=== PATIENT | female | born 1995 | race Caucasian/White ===

== ENCOUNTER 2016-10-26 16:29 | Emergency (ER) | payer MEDICARE | END 2016-10-26 18:16 | disposition home or self-care (01) | LOC: D.ER 16:29 | DX: F41.0 Panic disorder [episodic paroxysmal anxiety] (principal); K21.9 Gastro-esophageal reflux disease without esophagitis ==

== ENCOUNTER 2017-02-03 20:17 | Emergency (ER) | payer MEDICARE | END 2017-02-03 22:15 | disposition home or self-care (01) | LOC: D.ER 20:17 | DX: S93.401A Sprain of unspecified ligament of right ankle, initial encounter (principal); X58.XXXA Exposure to other specified factors, initial encounter; Y93.89 Activity, other specified; Y92.019 Unspecified place in single-family (private) house as the place of occurrence of the external cause; F41.0 Panic disorder [episodic paroxysmal anxiety]; K21.9 Gastro-esophageal reflux disease without esophagitis ==

== ENCOUNTER 2017-09-29 14:17 | Emergency (ER) | payer MEDICARE | END 2017-09-29 16:28 | disposition home or self-care (01) | LOC: D.ER 14:17 | DX: J06.9 Acute upper respiratory infection, unspecified (principal); J20.9 Acute bronchitis, unspecified; S89.91XA Unspecified injury of right lower leg, initial encounter; X58.XXXA Exposure to other specified factors, initial encounter; Y93.89 Activity, other specified; Y92.89 Other specified places as the place of occurrence of the external cause; K21.9 Gastro-esophageal reflux disease without esophagitis ==

== ENCOUNTER 2018-01-27 19:01 | Emergency (ER) | payer MEDICARE ==
[2018-01-27 19:21] LABS: BASOPHILS 0.6 % (0-2); EOSINOPHILS 1.5 % (0-7); HEMOGLOBIN 14.1 g/dL (12-16); IMMATURE GRANULOCYTES 0.1 % (0-5); LYMPHOCYTES 46.2 % (15-50); MCH 30.9 pg (26.0-34.0); MCHC 34.4 g/dL (31.0-37.0); MCV 89.9 fL (80.0-100.0); MEAN PLATELET VOLUME 8.9 fL (7.4-10.4); MONOCYTES 6.9 % (2-11); NEUTROPHILS 44.7 % (40-80); PLATELET COUNT 375 10x3/uL (130-400); RBC 4.56 10x6/uL (4.00-5.40); RDW 13.2 % (11.5-14.5); WBC 8.7 10x3/uL (4.8-10.8)
[2018-01-27 19:33] LABS: APPEARANCE HAZY (CLEAR); BILIRUBIN NEGATIVE (NEGATIVE); COLOR YELLOW (YELLOW); GLUCOSE NEGATIVE (NEGATIVE); KETONE NEGATIVE (NEGATIVE); NITRITE NEGATIVE (NEGATIVE); PROTEIN NEGATIVE (NEGATIVE); SPECIFIC GRAVITY 1.025 (1.005-1.020); UROBILINOGEN NORMAL (NORMAL)
[2018-01-27 19:34] LABS: HCG URINE NEGATIVE (NEGATIVE)
[2018-01-27 19:40] LABS: BACTERIA MODERATE /hpf (NONE SEEN); EPITHELIAL CELLS 0-5 /hpf (0-5); RED CELLS - URINE OCC /hpf (0-5); WHITE CELLS - URINE 0-5 /hpf (0-5)
[2018-01-27 19:44] LABS: ALBUMIN 3.7 g/dL (3.4-5.0); ALKALINE PHOSPHATASE 93 U/L (46-116); ALT (SGPT) 25 U/L (10-68); BILIRUBIN - TOTAL 0.27 mg/dL (0.2-1.3); CALC OSMOLALITY 277 mosm/kg (275-300); CALCIUM 8.7 mg/dL (8.5-10.1); CARBON DIOXIDE 22.4 mmol/L (21.0-32.0); CHLORIDE - SERUM 106 mmol/L (98-107); CREATININE - SERUM 0.9 mg/dL (0.6-1.3); GLUCOSE 120 mg/dL (74-106); POTASSIUM - SERUM 3.7 mmol/L (3.5-5.1); PROTEIN - SERUM 7.9 g/dL (6.4-8.2); SODIUM 139 mmol/L (136-145); UREA NITROGEN 9 mg/dL (7-18); eGFR NON AFRICAN AMERICAN 82 mL/min (90-120)
== END 2018-01-27 20:17 | disposition home or self-care (01) ==
LOC: D.ER 19:01
PROVIDERS: Emergency Medicine
DX: R10.9 Unspecified abdominal pain (principal); H66.92 Otitis media, unspecified, left ear; K21.9 Gastro-esophageal reflux disease without esophagitis

== ENCOUNTER → 2018-01-27 19:09 | Emergency (ER) | payer MEDICARE | LOC: D.ER 19:09 | DX: R10.9 Unspecified abdominal pain (principal); H66.92 Otitis media, unspecified, left ear; K21.9 Gastro-esophageal reflux disease without esophagitis ==

== ENCOUNTER 2018-03-01 22:48 | Emergency (ER) | payer MEDICARE | END 2018-03-01 23:34 | disposition home or self-care (01) | LOC: D.ER 22:48 | DX: L02.414 Cutaneous abscess of left upper limb (principal); K21.9 Gastro-esophageal reflux disease without esophagitis ==

== ENCOUNTER 2018-03-22 12:19 | Emergency (ER) | payer MEDICARE ==
[~2018-03-22] VITALS: Ht 162.6 cm; Wt 90.9 kg
[2018-03-22 12:42] VITALS: Ht 162.6 cm; Wt 90.9 kg
[2018-03-22] MEDS ORDERED: TORADOL10 MG PO (15:03)
[2018-03-22 15:07] VITALS: BP 127/69
== END 2018-03-22 15:09 | disposition home or self-care (01) ==
LOC: D.ER 12:19
DX: T23.032A Burn of unspecified degree of multiple left fingers (nail), not including thumb, initial encounter (principal); X10.1XXA Contact with hot food, initial encounter; Y93.89 Activity, other specified; Y92.019 Unspecified place in single-family (private) house as the place of occurrence of the external cause; K21.9 Gastro-esophageal reflux disease without esophagitis

== ENCOUNTER 2018-03-23 21:13 | Emergency (ER) | payer MEDICARE ==
[~2018-03-23] VITALS: Ht 162.6 cm; Wt 90.9 kg
[~2018-03-23 21:13] MED LIST: TORADOL10 MG PO
[2018-03-23 21:31] VITALS: Ht 162.6 cm; Wt 90.9 kg
[2018-03-23 22:28] VITALS: BP 129/82
== END 2018-03-23 22:06 | disposition home or self-care (01) ==
LOC: D.ER 21:13
DX: T23.002D Burn of unspecified degree of left hand, unspecified site, subsequent encounter (principal); X10.1XXD Contact with hot food, subsequent encounter

== ENCOUNTER 2018-06-19 21:36 | Emergency (ER) | payer MEDICARE ==
[~2018-06-19] VITALS: Ht 162.6 cm; Wt 90.9 kg
[2018-06-19 21:51] VITALS: Ht 162.6 cm; Wt 90.9 kg
[2018-06-19 22:41] LABS: APPEARANCE CLOUDY (CLEAR); BILIRUBIN NEGATIVE (NEGATIVE); COLOR YELLOW (YELLOW); GLUCOSE NEGATIVE (NEGATIVE); KETONE NEGATIVE (NEGATIVE); NITRITE NEGATIVE (NEGATIVE); PROTEIN NEGATIVE (NEGATIVE); UROBILINOGEN NORMAL (NORMAL)
[2018-06-19 22:42] LABS: RED CELLS - URINE 0-5 /hpf (0-5); WHITE CELLS - URINE 0-5 /hpf (0-5)
[2018-06-19 22:43] LABS: EPITHELIAL CELLS 0-5 /hpf (0-5)
[2018-06-19 22:44] LABS: BACTERIA FEW /hpf (NONE SEEN)
[2018-06-19] MEDS ORDERED: OMEPRAZOLE40 MG PO (23:12)
[2018-06-19 23:19] VITALS: BP 118/68
== END 2018-06-19 23:19 | disposition home or self-care (01) ==
LOC: D.ER 21:36
PROVIDERS: Emergency Medicine
DX: K29.70 Gastritis, unspecified, without bleeding (principal); M54.5 Low back pain

== ENCOUNTER 2018-08-02 03:34 | Emergency (ER) | payer MEDICARE ==
[~2018-08-02] VITALS: Ht 162.6 cm; Wt 135.9 kg
[~2018-08-02 03:34] MED LIST changes: +OMEPRAZOLE40 MG PO
[2018-08-02 03:38] VITALS: Ht 162.6 cm; Wt 135.9 kg
[2018-08-02 04:19] LABS: BASOPHILS 0.5 % (0-2); EOSINOPHILS 0.9 % (0-7); HEMATOCRIT 41.2 % (36.0-48.0); HEMOGLOBIN 14.2 g/dL (12-16); IMMATURE GRANULOCYTES 0.1 % (0-5); LYMPHOCYTES 29.8 % (15-50); MCH 30.5 pg (26.0-34.0); MCHC 34.5 g/dL (31.0-37.0); MCV 88.4 fL (80.0-100.0); MEAN PLATELET VOLUME 9.4 fL (7.4-10.4); MONOCYTES 8.9 % (2-11); NEUTROPHILS 59.8 % (40-80); PLATELET COUNT 384 10x3/uL (130-400); RBC 4.66 10x6/uL (4.00-5.40); RDW 12.6 % (11.5-14.5); WBC 9.6 10x3/uL (4.8-10.8)
[2018-08-02 04:40] LABS: ALBUMIN 3.6 g/dL (3.4-5.0); ALKALINE PHOSPHATASE 104 U/L (46-116); ALT (SGPT) 29 U/L (10-68); AMYLASE - SERUM 66 U/L (25-115); BILIRUBIN - TOTAL 0.27 mg/dL (0.2-1.3); CALC OSMOLALITY 291 mosm/kg (275-300); CALCIUM 8.6 mg/dL (8.5-10.1); CARBON DIOXIDE 24.5 mmol/L (21.0-32.0); CHLORIDE - SERUM 110 mmol/L (98-107); CREATININE - SERUM 0.8 mg/dL (0.6-1.3); GLUCOSE 102 mg/dL (74-106); LIPASE 201 U/L (73-393); POTASSIUM - SERUM 3.7 mmol/L (3.5-5.1); PROTEIN - SERUM 7.8 g/dL (6.4-8.2); SODIUM 148 mmol/L (136-145); TROPONIN-I < 0.017 ng/mL (0.000-0.060); UREA NITROGEN 6 mg/dL (7-18); eGFR NON AFRICAN AMERICAN > 90 mL/min (90-120)
[2018-08-02 04:59] LABS: APPEARANCE HAZY (CLEAR); BILIRUBIN NEGATIVE (NEGATIVE); COLOR YELLOW (YELLOW); GLUCOSE NEGATIVE (NEGATIVE); HCG URINE NEGATIVE (NEGATIVE); KETONE NEGATIVE (NEGATIVE); NITRITE NEGATIVE (NEGATIVE); PROTEIN NEGATIVE (NEGATIVE); UROBILINOGEN NORMAL (NORMAL)
[2018-08-02 05:01] LABS: BACTERIA MANY /hpf (NONE SEEN); MUCUS NONE SEEN /lpf (NONE SEEN); RED CELLS - URINE 0-5 /hpf (0-5); WHITE CELLS - URINE 0-5 /hpf (0-5); YEAST NONE SEEN /hpf (NONE SEEN)
[2018-08-02] MEDS ORDERED: CARAFATE1 G PO (06:08)
[2018-08-02] MEDS ORDERED: OMEPRAZOLE40 MG PO (06:08)
[2018-08-02] MEDS ORDERED: FLORASTOR250 MG PO (06:22)
[2018-08-02 06:38] VITALS: BP 138/87
== END 2018-08-02 06:38 | disposition home or self-care (01) ==
LOC: D.ER 03:34
PROVIDERS: Family Medicine
DX: K21.9 Gastro-esophageal reflux disease without esophagitis (principal); K76.0 Fatty (change of) liver, not elsewhere classified; E87.1 Hypo-osmolality and hyponatremia; A59.01 Trichomonal vulvovaginitis

== ENCOUNTER 2019-04-12 23:14 | Emergency (ER) | payer MEDICARE ==
[~2019-04-12] VITALS: Ht 162.6 cm; Wt 136.4 kg
[~2019-04-12 23:14] MED LIST changes: +CARAFATE1 G PO; +FLORASTOR250 MG PO
[2019-04-12 23:18] VITALS: Ht 162.6 cm; Wt 136.4 kg
[2019-04-12 23:49] VITALS: BP 155/100
== END 2019-04-12 23:50 | disposition home or self-care (01) ==
LOC: D.ER 23:14
DX: T23.101A Burn of first degree of right hand, unspecified site, initial encounter (principal); X10.2XXA Contact with fats and cooking oils, initial encounter; Y93.G3 Activity, cooking and baking; Y92.89 Other specified places as the place of occurrence of the external cause

== ENCOUNTER 2019-05-31 22:24 | Emergency (ER) | payer MEDICARE ==
[~2019-05-31] VITALS: Ht 162.6 cm; Wt 90.9 kg
[2019-05-31 22:31] VITALS: Ht 162.6 cm; Wt 90.9 kg
[2019-05-31] MEDS ORDERED: NAPROSYN500 MG PO (23:12)
[2019-05-31 23:35] VITALS: BP 132/80
== END 2019-05-31 23:35 | disposition home or self-care (01) ==
LOC: D.ER 22:24
DX: S93.401A Sprain of unspecified ligament of right ankle, initial encounter (principal); X50.1XXA Overexertion from prolonged static or awkward postures, initial encounter; Y93.89 Activity, other specified; Y92.89 Other specified places as the place of occurrence of the external cause

== ENCOUNTER 2019-06-25 11:24 | Emergency (ER) | payer MEDICARE ==
[~2019-06-25] VITALS: Ht 162.6 cm; Wt 90.9 kg
[~2019-06-25 11:24] MED LIST changes: +NAPROSYN500 MG PO
[2019-06-25 11:51] VITALS: BP 150/95; Ht 162.6 cm; Wt 90.9 kg
[2019-06-25] MEDS ORDERED: VITAMIN D31000 UNI2 PO (11:53)
[2019-06-25] MEDS ORDERED: VITAMIN E100 UNIT PO (11:54)
[2019-06-25] MEDS ORDERED: DOXYCYCLINE HY100 M2 PO (14:55)
== END 2019-06-25 15:34 | disposition home or self-care (01) ==
LOC: D.ER 11:24
DX: L03.312 Cellulitis of back [any part except buttock and flank] (principal)

== ENCOUNTER 2019-08-25 21:34 | Emergency (ER) | payer MEDICARE ==
[~2019-08-25] VITALS: Ht 162.6 cm; Wt 132.3 kg
[~2019-08-25 21:34] MED LIST changes: +DOXYCYCLINE HY100 M2 PO; +VITAMIN D31000 UNI2 PO; +VITAMIN E100 UNIT PO
[2019-08-25 21:39] VITALS: Ht 162.6 cm; Wt 132.3 kg
[2019-08-25] MEDS ORDERED: VITAMIN D31000 UNI2 PO (21:42)
[2019-08-25] MEDS ORDERED: BIRTH CONTROL (21:42)
[2019-08-25] MEDS ORDERED: FLUTICASONE PRO16 GM NASAL (23:38)
[2019-08-25] MEDS ORDERED: AUGMENTIN 875-11 TAB PO (23:38)
[2019-08-25 23:48] VITALS: BP 166/119
== END 2019-08-25 23:48 | disposition home or self-care (01) ==
LOC: D.ER 21:34
DX: J01.90 Acute sinusitis, unspecified (principal); R07.9 Chest pain, unspecified; I10 Essential (primary) hypertension; K21.9 Gastro-esophageal reflux disease without esophagitis; R05 Cough; R09.81 Nasal congestion

== ENCOUNTER 2020-06-25 22:58 | Emergency (ER) | payer MEDICARE ==
[~2020-06-25] VITALS: Ht 162.6 cm; Wt 90.9 kg
[~2020-06-25 22:58] MED LIST changes: +AUGMENTIN 875-11 TAB PO; +BIRTH CONTROL; +FLUTICASONE PRO16 GM NASAL
[2020-06-25 23:04] VITALS: Ht 162.6 cm; Wt 90.9 kg
[2020-06-25] MEDS ORDERED: BENICAR20 MG (23:06)
[2020-06-25] MEDS ORDERED: NORVASC5 MG PO (23:07)
[2020-06-25] MEDS ORDERED: ATIVAN2 MG PO (23:07)
[2020-06-25] MEDS ORDERED: NORCO 7.5-3251 EACH GT (23:57)
[2020-06-26 00:38] VITALS: BP 144/90
== END 2020-06-26 00:38 | disposition home or self-care (01) ==
LOC: D.ER 22:58
DX: S93.401A Sprain of unspecified ligament of right ankle, initial encounter (principal); I10 Essential (primary) hypertension; W19.XXXA Unspecified fall, initial encounter; Y93.9 Activity, unspecified; Y92.9 Unspecified place or not applicable

== ENCOUNTER 2020-06-30 18:42 | Emergency (ER) | payer MEDICARE ==
[~2020-06-30] VITALS: Ht 162.6 cm; Wt 90.9 kg
[~2020-06-30 18:42] MED LIST changes: +ATIVAN2 MG PO; +BENICAR20 MG; +NORCO 7.5-3251 EACH GT; +NORVASC5 MG PO
[2020-06-30 18:57] VITALS: BP 135/94; Ht 162.6 cm; Wt 90.9 kg
[2020-06-30] MEDS ORDERED: TORADOL10 MG PO (19:38)
== END 2020-06-30 19:55 | disposition home or self-care (01) ==
LOC: D.ER 18:42
DX: S93.401A Sprain of unspecified ligament of right ankle, initial encounter (principal); I10 Essential (primary) hypertension; K21.9 Gastro-esophageal reflux disease without esophagitis; W19.XXXA Unspecified fall, initial encounter; Y93.9 Activity, unspecified; Y92.9 Unspecified place or not applicable

== ENCOUNTER 2020-07-18 11:53 | Emergency (ER) | payer MEDICARE ==
[~2020-07-18] VITALS: Ht 162.6 cm; Wt 90.9 kg
[2020-07-18 12:18] VITALS: Ht 162.6 cm; Wt 90.9 kg
[2020-07-18 13:35] VITALS: BP 122/80
== END 2020-07-18 13:36 | disposition home or self-care (01) ==
LOC: D.ER 11:53
DX: S93.401A Sprain of unspecified ligament of right ankle, initial encounter (principal); W19.XXXA Unspecified fall, initial encounter; Y93.9 Activity, unspecified; Y92.9 Unspecified place or not applicable; I10 Essential (primary) hypertension; K21.9 Gastro-esophageal reflux disease without esophagitis; S63.501A Unspecified sprain of right wrist, initial encounter